=== PATIENT | female | born 2000 | race Caucasian/White ===

== ENCOUNTER 2022-10-23 08:59 | Outpatient (CLI) | payer OTHER, SELFPAY ==
--- NOTE | 2022-10-23 09:15 | CRLHL7_ITS ---
For Patients: As a result of the Century Cures Act, medical imaging exams and procedure reports are released immediately into your electronic medical record. You may view this report before your referring provider. If you have questions, please contact your health care provider. Indication: Right hip pain. Procedure : Informed consent was obtained. The site was marked. Time-out was performed. The skin of the right hip was cleansed with ChloraPrep. A sterile drape was placed. 8 cc of 1 percent lidocaine was administered for superficial anesthesia. Subsequently a 22 gauge spinal needle was introduced into the right hip joint under intermittent fluoroscopic guidance. Injection of 2 cc nonionic Omnipaque 240 contrast confirmed intra-articular location. Subsequently 11 cc of dilute gadolinium were injected. The needle was removed and hemostasis achieved with direct pressure. A dressing was placed. The patient tolerated the procedure well without immediate complication and was immediately sent to MRI for imaging. Total fluoroscopy time 21 seconds. Impression: Successful fluoroscopically guided right hip arthrogram for MRI. Dictated by Bowen Damico MD @ 10/23/2022 11:14:20 AM (Electronically Signed)
--- NOTE | 2022-10-23 10:15 | MR_ITS ---
[address] [address] Phone:?[phone] Fax:?[phone] Referring Physician Information: Ana Del Valle M.D. [address] [facility] [address] Phone:?[phone] Fax:?[phone] Patient:Jeri Silvestre D.O.B:?2000 Sex:?Female Phone:?[phone] [facility] MRN:[id number] Exam Date:?10/23/2022 ? EXAM: MR ARTHROGRAM of the RIGHT HIP CLINICAL INFORMATION: Female, 22 years old, with right hip pain. INDICATION: Evaluate for labral tear. PRIOR SURGERY: None reported. PLAIN FILMS: None available. COMPARISONS: No prior MRIs available. TECHNICAL INFORMATION: Exam performed after injection of gadolinium-based contrast into the right hip joint, reported separately. Using a 1.5T MR scanner: coronals: PD, T2, T1FS sagittals: PD, T2, T1FS axial obliques: PD axials: PDFS coronals of pelvis: T1, STIR SEDATION: None. CONTRAST: No intravenous contrast was administered. FINDINGS: Hip joint: Gadolinium-based contrast distends the hip joint, reflecting successful arthrography. No chondromalacia or focal full-thickness defect of the femoral head or acetabular articular cartilage. No intra-articular bodies. Labrum: Approximately 1.8 cm partial-thickness linear chondrolabral junction tearing of the superior labrum (coronal series 4 images 11-15). There is also fraying and irregularity of the anterosuperior labrum. No paralabral cyst. Proximal femur: No femoral occult fracture, stress injury, marrow edema or osteonecrosis. Normal femoral head/neck junction offset. No fibrocystic change. No convincing femoral cam morphology. Based on oblique axial series 8 image 14 at approximately 1:30 o'clock anterosuperiorly, the maximum femoral alpha angle measures approximately 50?. Acetabulum: No subchondral cysts, periacetabular ossicles or marrow edema. Version: There appears decreased cranial acetabular anteversion without convincing retroversion. Coverage: Right lateral center edge (CE) angle measures approximately 33? (normal 25?-39?), midline coronal series 6 image 18, corrected for pelvic obliquity. Ligamentum teres: Ligamentum teres is intact and unremarkable. Iliofemoral ligament: The iliofemoral ligament is intact without thickening. Pelvis osseous structures: Sacrum: No stress/insufficiency fractures or marrow edema/pathology. Sacroiliac joints: No demonstrable sacroiliitis. Pubic rami: No stress/insufficiency fractures or marrow edema/pathology. Symphysis pubis: No ongoing osteitis pubis. Myotendinous structures: Gluteus abductors: No convincing insertional tendinopathy or tear of gluteus minimus or medius. Adductors: No demonstrable tendinopathy or strain/tear. Hamstrings: Intact semimembranosus, semitendinosus and biceps femoris tendons, without tendinopathy or tear. Flexors: Intact iliopsoas and rectus femoris, without strain/tear. External rotators: Mild edema-like signal is present within the quadratus femoris muscle belly (axial PDFS series 9 image 26). This is associated with mild narrowing of the ischiofemoral space. Gluteal aponeurotic fascia and IT band: Unremarkable. Bursae: No demonstrable trochanteric, iliopsoas, or iliopectineal bursitis. Intrapelvic contents: Free fluid: No free fluid seen within the pelvis. Pelvic viscera: No discrete intrapelvic mass is identified. Lymph nodes: No lymphadenopathy by MRI size criteria. Neurovascular structures: No discrete cyst, mass or other compression upon the portions visualized of sciatic or femoral nerves. Lumbar spine:?The visualized portions of the lower lumbar spine are unremarkable. IMPRESSION: 1. Partial thickness linear chondrolabral junction tearing of the superior labrum measuring 1.8 cm. No paralabral cyst. 2. No abnormal femoroacetabular osseous morphology to indicate a predisposition to impingement. 3. 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 4. No other myotendinous abnormality. 5. No fracture or osseous stress reaction. 6. No full-thickness chondral defect or evidence of hip joint osteoarthritis. BC Electronically signed on 10/23/2022 1:42:00 PM by Anibal Montoya M.D.
== END 2022-10-23 09:00 | disposition home or self-care (01) ==
PROVIDERS: Visit Provider Student in an Organized Health Care Education/Training Program
DX: M25.551 Pain in right hip (principal); S73.101A Unspecified sprain of right hip, initial encounter; R29.4 Clicking hip
CPT/HCPCS: 73525; 73722; 77002; A9575; Q9966